=== PATIENT | male | born 1980 | race Caucasian/White ===

== ENCOUNTER → 2016-10-02 09:20 | Outpatient (CLI) | payer MEDICAID | END | disposition home or self-care (01) | LOC: D.MRI 09-29 11:00 | DX: M25.561 Pain in right knee (principal); M25.562 Pain in left knee ==

== ENCOUNTER 2017-01-12 07:13 | Day surgery (SDC) | payer MEDICAID ==
[2017-01-11 12:06] LABS: BASOPHILS 0.2 % (0-2); EOSINOPHILS 2.2 % (0-7); HEMATOCRIT 46.7 % (42.0-54.0); HEMOGLOBIN 15.9 g/dL (13.5-17.5); IMMATURE GRANULOCYTES 0.4 % (0-5); MCH 29.6 pg (26.0-34.0); MEAN PLATELET VOLUME 10.2 fL (7.4-10.4); MONOCYTES 5.8 % (2-11); NEUTROPHILS 72.4 % (40-80); PLATELET COUNT 238 10x3/uL (130-400); RBC 5.37 10x6/uL (4.20-6.10); RDW 13.9 % (11.5-14.5); WBC 10.6 10x3/uL (4.8-10.8)
[2017-01-11 12:14] LABS: APTT 27.2 SECONDS (22.8-39.4); INR 0.97 (0.85-1.17); PROTIME 12.8 SECONDS (11.6-15.0)
[2017-01-12 06:18] VITALS: BP 129/86; BMI 33.7
[~2017-01-12 07:13] MED LIST: LISINOPRIL-HCTZ1 T13 PO; TOPROL XL50 MG PO; ULTRAM50 MG PO
[2017-01-12] MEDS ORDERED: PERCOCET 7.5/321 TAB PO (08:22)
[2017-01-12] MEDS ORDERED: TORADOL10 MG PO (08:22)
--- NOTE | 2017-01-12 09:27 | NUR ---
0850-RECD FROM PACU. ALERT. RESP WITH EASE. DENIES PAIN. IV PATENT. LEFT KNEE DRESSING DRY AND INTACT.
--- NOTE | 2017-01-12 10:36 | NUR ---
IV DC WITH CATHER TIP INTACT
--- NOTE | 2017-01-16 07:05 | OP ---
PATIENT NAME: GILSON STOKES JR MEDICAL RECORD: [id number] :78 LOCATION:[facility] ADMISSION DATE: SURGEON: ADAN NESS DO DATE OF OPERATION: 01/12/2017 PROCEDURE PERFORMED: Left knee arthroscopy with partial medial meniscectomy, partial synovectomy, lateral release, abrasion chondroplasty of the medial femoral condyle. PREOPERATIVE DIAGNOSES: Left knee lateral patellar tilt, patellofemoral syndrome, left knee pain. POSTOPERATIVE DIAGNOSES: Left knee medial meniscal tear, lateral patellar tilt, synovitis, grade III chondromalacia of the medial femoral condyle. SURGEON: Adan Ness DO. CHIP LOFT WORKER: Tesha Montelongo, advanced nurse practitioner. INDICATIONS: Mr. Stokes is a 36-year-old male, who has had bilateral knee pain with the left greater than right for quite some time. He has been attempting physical therapy and nonoperative treatment including injections and NSAIDs for quite sometime for years and has not had good relief. He has failed physical therapy and on x-ray, he had the lateral patellar tilt and said he wanted to do something to make it better surgically as it is affecting his activities of daily living. He was consented for procedure in the office. DESCRIPTION OF PROCEDURE: Mr. Stokes was taken to the operative suite, placed in supine position, given general anesthetic and 2 grams of Ancef preoperatively. Once this was done, the left leg was identified and prepped and draped in sterile fashion. A time-out was performed and everyone was in agreeance with correct side, site, and patient. Once time-out was performed, everyone was in agreeance. The left knee portal sites in the anterior, lateral, and medial portals were injected with 0.25% Marcaine with epinephrine with 4 mL of that injected in each of the proposed portal sites. The lateral portal was then established with an 11-blade scalpel and the trocar was entered into the knee and suprapatellar pouch. The camera was then placed into that. Diagnostic arthroscopy was performed at that time in the suprapatellar pouch. No loose bodies were seen. The lateral gutter was then entered and no loose bodies were seen there. The medial gutter was entered, no loose bodies there. The knee was then flexed and a small meniscal tear flap was encountered at the mid portion of the meniscus. The medial portal was then established with a spinal needle and 11-blade scalpel and then a probe was entered into the medial portal and then straight biter and small tear was then removed with the straight biter and then the shaver was used to smooth it out. The chondromalacia was then seen on the medial femoral condyle of the lateral aspect of the grade III chondromalacia and the shaver was used to smooth it out and take it off the loose pieces. Once this was done, the ACL was probed and seen and seen to be in good position and very taut. The probe was then placed over into the lateral compartment, the knee was in [id number] and lateral compartment was entered. With the camera, the meniscus was probed and no tears were seen and it was seen to be in good position. The knee was then extended and the scope was placed in the patella. The knee was flexed in about 30 degrees. The patella was seen to be quite lateral riding on the trochlea, nowhere near the center of the groove and this was documented by pictures. The knee was flexed 30 degrees and the scope OPERATIVE REPORT [id number] GILSON STOKES JR was then switched from the lateral portal to the medial portal and the ablation probe was then entered through the lateral portal and the lateral release commenced at the superior portion of the synovium and the lateral retinaculum. This was released down to the inferior lateral portal. The excessive synovium that was inflamed was removed also with a shaver, one for viewing and two for the amount of synovium. Once this was done, the knee was brought through range of motion with the scope in the lateral portal, and the patella was seen to track well into the trochlea without being lateral. This was documented by pictures. The suction was turned on and the excess fluid was removed from the knee and then the trocars removed from the knee. The portal sites were then closed with a single inverted interrupted stitch of 4-0 Monocryl. Steri-Strips, Adaptic, 4 x 4, ABD, Webril, and Flako wrap were placed over the knee, and a HARVEY hose was placed up to the knee. The patient was awakened and taken to recovery in stable condition. Blood loss was minimal. TRANSINT:[id number] Voice Confirmation ID: [id number] DOCUMENT ID: [id number] ADAN NESS DO at 0705 CC: [id number] DICTATION DATE: 01/12/17 0820 BALL MAKER: 01/12/17 1228 [facility] 01/12/17 [id number] [place] [address]
[2017-02-01] MEDS ORDERED: ULTRAM50 MG PO (13:02)
== END 2017-01-12 10:41 | disposition home or self-care (01) ==
LOC: D.OPS 07:13 → D.PAN 07:30 → D.OPS 10:41
PROVIDERS: Anesthesiology
DX: S83.242A Other tear of medial meniscus, current injury, left knee, initial encounter (principal); M65.9 Synovitis and tenosynovitis, unspecified; M94.20 Chondromalacia, unspecified site; I10 Essential (primary) hypertension; Z01.812 Encounter for preprocedural laboratory examination

== ENCOUNTER 2017-02-02 05:11 | Day surgery (SDC) | payer MEDICAID ==
[2017-02-01 14:13] LABS: HEMATOCRIT 48.9 % (42.0-54.0); HEMOGLOBIN 16.3 g/dL (13.5-17.5); MCH 29.2 pg (26.0-34.0); MCHC 33.3 g/dL (31.0-37.0); MCV 87.6 fL (80.0-100.0); MEAN PLATELET VOLUME 10.2 fL (7.4-10.4); RBC 5.58 10x6/uL (4.20-6.10); RDW 14.1 % (11.5-14.5); WBC 9.1 10x3/uL (4.8-10.8)
[2017-02-01 14:29] LABS: ANION GAP 11.3 mmol/L (8-16); CALCIUM 9.4 mg/dL (8.5-10.1); CARBON DIOXIDE 29.2 mmol/L (21.0-32.0); CREATININE - SERUM 1.5 mg/dL (0.6-1.3); POTASSIUM - SERUM 4.5 mmol/L (3.5-5.1)
[~2017-02-02 05:11] MED LIST changes: +PERCOCET 7.5/321 TAB PO; +TORADOL10 MG PO
[2017-02-02 14:40] VITALS: BP 131/84; BMI 32.9
--- NOTE | 2017-02-02 17:05 | NUR ---
1630-UPDATED APPROX TIME TO SURGERY IS ESTIMATED AT [id number].
--- NOTE | 2017-02-02 18:18 | NUR ---
1800 UPDATED PATIENT THAT WILL BE MOVING TO ANOTHER BED FOR SURGERY AND HOPEFULLY NOT TO MUCH LONGER.TOLD WOULD BE MOVING TO 2224.
[2017-02-02] MEDS ORDERED: TORADOL10 MG PO (20:19)
[2017-02-02] MEDS ORDERED: PERCOCET 7.5/321 TAB PO (20:19)
[2017-02-02 21:00] VITALS: BP 123/80
--- NOTE | 2017-02-02 22:01 | NUR ---
REPORT FROM PACU RECEIVED. PT WILL BE BACK ON FLOOR APPROX 20 MINUTES. PACU NURSE CALLED SPOUSE IN ROOM.
[2017-02-02 22:36] VITALS: BP 155/80
[2017-02-02 22:37] VITALS: BP 155/80
--- NOTE | 2017-02-02 22:37 | NUR ---
PT ARRIVED VIA BED FROM PACU. ALERT AND ORIENTED. VITALS STABLE.
[2017-02-02 22:52] VITALS: BP 159/94
--- NOTE | 2017-02-02 22:59 | NUR ---
PT SITTING UP IN BED EATING SANDWICH AND DRINKING A COKE. NO NAUSEA REPORTED.
[2017-02-02 23:07] VITALS: BP 156/84
--- NOTE | 2017-02-02 23:20 | NUR ---
REMOVED IV FROM LEFT FA WITH CATHETER TIP INTACT AND PLACED PRESSURE DRESSING.
--- NOTE | 2017-02-02 23:25 | NUR ---
POST OP INSTRUCTIONS GIVEN VERBALLY AND WRITTEN.
--- NOTE | 2017-02-02 23:25 | NUR ---
PRESCRIPTIONS GIVEN FOR PAIN MEDICATIONS. COPY IN CHART.
--- NOTE | 2017-02-02 23:26 | NUR ---
ESCORTED PT VIA WHEELCHAIR TO ER EXIT ESCORTED BY SPOUSE. ASSISTED PT TO GET IN PASSENGER SIDE OF CAR. VERBALLY GAVE INSTRUCTIONS TO CALL WITH ANY QUESTIONS OR PROBLEMS.
--- NOTE | 2017-02-03 01:07 | NUR ---
PREP APPLIED PREP DRY DRAPED
--- NOTE | 2017-02-03 14:16 | OP ---
PATIENT NAME: GILSON STOKES JR MEDICAL RECORD: [id number] :78 LOCATION:[facility] ADMISSION DATE: SURGEON: ADAN NESS DO DATE OF OPERATION: 02/02/2017 PROCEDURE PERFORMED: Right knee arthroscopy with lateral release. PREOPERATIVE DIAGNOSIS: Right knee patellofemoral syndrome with maltracking. POSTOPERATIVE DIAGNOSIS: Right knee patellofemoral syndrome with maltracking. INDICATIONS: Mr. tSokes is a 37-year-old male that presented to me complaining of bilateral knee pain going up and downstairs and he had this for some time. He even tried long-term physical therapy and injections, which did not help. He was very tight with a lateral movement of the patella and it did maltrack. He had a lateral tilt on x-rays and MRIs were done and his to TT-TG distance was not greater than 20, therefore, he did not need to have a more extensive surgery. The risks and benefits of the procedure were discussed with him and he just 2 weeks ago had the left knee done and wanted the right knee done. He was verbally consented for the procedure in my office. SURGEON: Adan Ness DO ESTIMATED BLOOD LOSS: Minimal. DESCRIPTION OF PROCEDURE: The patient was taken to the operative suite and laid in supine position, given general anesthetic. The right leg was prepped and draped in sterile fashion. A timeout was performed, everyone was in agreement with the correct side, site, and correct surgery and the patient. Once this was done, the knee was flexed. Lateral portal was established with an 11-blade scalpel. Then trocar was placed over the suprapatellar pouch. Camera was then entered into that. Inspection of the knee then began. There were no loose bodies seen on the suprapatellar pouch or the medial gutter. The knee was then flexed and the medial compartment was entered. There were no loose bodies seen in the medial joint line and the medial portal was established. The medial meniscus was probed and did not seem to have any tears. The ACL was probed and did not seem to have any tears. The leg was then figured forward and the lateral meniscus was probed and the lateral joint line was seem to not have any meniscal tears or any chondromalacia. The knee was then brought into extension and the toe was noted to be quite lateral and tracking in the trochlea and then the portals were switched, the camera was then put through the medial portal and the burner was brought into the lateral portal and a lateral release commenced at the superior bands and then inferiorly, this was released at 30 degrees of flexion. Once this was done, the knee was then brought into full flexion and the patella was seen to track very well in the trochlea. Once this is noted, the camera was withdrawn and excess water was squeezed out of the knee. A single 4-0 inverted interrupted stitch was then made in each of the medial and lateral portals and a Steri-Strip was placed on there. Adaptic, 4 x 4s, ABD, Webril, Flako wrap and HARVEY hose were placed on the patient's leg. He was awakened and taken to recovery in stable condition. BLOOD LOSS: Minimal. TRANSINT:[id number] Voice Confirmation ID: [id number] DOCUMENT ID: [id number] OPERATIVE REPORT [id number] GILSON STOKES JR, MICHAEL D, DO at 1416 CC: [id number] DICTATION DATE: 02/02/172140 TECHNOLOGY EDUCATION INSTRUCTOR: 02/02/172236 [facility] 02/02/17 [facility] [address] [place] [address]
== END 2017-02-02 23:27 | disposition home or self-care (01) ==
LOC: D.OPS 05:11 → D.PAN 15:15 → D.OPS 15:15 → D.MS 19:15 → D.OPS 23:27
PROVIDERS: Orthopaedic Surgery
DX: M22.2X1 Patellofemoral disorders, right knee (principal); Z01.812 Encounter for preprocedural laboratory examination

== ENCOUNTER → 2017-05-22 12:37 | Outpatient (CLI) | payer MEDICAID | END | disposition home or self-care (01) | LOC: D.MRI 12:37 | DX: S83.209A Unspecified tear of unspecified meniscus, current injury, unspecified knee, initial encounter (principal); X58.XXXA Exposure to other specified factors, initial encounter; Y93.89 Activity, other specified; Y92.89 Other specified places as the place of occurrence of the external cause ==